=== PATIENT | female | born 1965 | race African-American/Black ===

== ENCOUNTER 2018-01-05 18:37 | Emergency (ER) | payer SELFPAY ==
[~2018-01-05] VITALS: Ht 165.1 cm; Wt 50.0 kg
[2018-01-05] MEDS ORDERED: HYDROCODONE/APAP 7.5/325MG 1 TAB TABLET PO ONE (20:30)
[2018-01-05] MEDS ORDERED: KETOROLAC 60MG/2ML VIAL IM ONE (20:30)
[2018-01-05 22:40] VITALS: BP 167/79
== END 2018-01-05 23:34 | disposition home or self-care (01) ==
LOC: ER 18:44
DX: S52.501A Unspecified fracture of the lower end of right radius, initial encounter for closed fracture (principal); S40.021A Contusion of right upper arm, initial encounter; Y92.410 Unspecified street and highway as the place of occurrence of the external cause; Y93.89 Activity, other specified; Y99.8 Other external cause status; Y92.89 Other specified places as the place of occurrence of the external cause
CPT/HCPCS: 29125; 70450; 72100; 72125; 73060; 73090; 73130; 99284; Z7610